=== PATIENT | male | born 1995 ===

== ENCOUNTER 2018-03-15 15:11 | Outpatient (CLI) | payer OTHER | END 2018-03-15 17:39 | disposition home or self-care (01) | LOC: EDSTATUS 15:11 → LAB 15:11 | DX: Z11.3 Encounter for screening for infections with a predominantly sexual mode of transmission (principal) ==

== ENCOUNTER 2019-05-27 02:08 | Emergency (ER) | payer OTHER ==
[~2019-05-27] VITALS: Ht 167.6 cm; Wt 59.0 kg
== END 2019-05-27 05:32 | disposition home or self-care (01) ==
LOC: ER 02:08
DX: M79.675 Pain in left toe(s) (principal)